=== PATIENT | female | born 1955 | race American Indian/Alaskan Native ===

== ENCOUNTER 2020-02-06 00:48 | Outpatient (CLI) | payer MEDICAID, SELFPAY ==
--- NOTE | 2020-02-06 | DI.MAMMO_ITS ---
EXAM: MAMMO SCREENING CLINICAL HISTORY: SCREENING,Z12.31 TECHNIQUE: Mammograms were interpreted according to the usual protocol including computer analysis w [employer] system, tomosynthesis and C-view imaging. FINDINGS: The breasts are of moderate density with fairly symmetrical distribution of fibroglandular tissue, fo piero asymmetric density is noted in upper outer quadrant of the right breast, unchanged in appearance in comparison with prior studies from [facility] including July 2018. No dominant mass or clumped microcalcification is identified in either breast. No other significant change seen. IMPRESSION: No specific evidence of malignancy at this time. Routine screening examinations are suggested at yea rly intervals in this age group according to the ACS/ACR guidelines. BI-RADS Category 1 - Negative Breast Density - Category B - Scattered areas of fibroglandular density
== END 2020-02-06 01:08 ==
PROVIDERS: PCP Family Medicine; Visit Provider Family Medicine
DX: Z12.31 Encounter for screening mammogram for malignant neoplasm of breast (principal)
CPT/HCPCS: 77063; 77067

== ENCOUNTER 2020-04-16 00:30 | Outpatient (CLI) | payer MEDICAID, SELFPAY ==
[2020-04-16 07:52] LABS: Abs Immature Grans 0.01 10^3/uL (0.0-0.06); Absolute Basophil Count 0.03 10^3/uL (0.0-0.2); Absolute Lymphocyte Count 1.59 10^3/uL (1.2-3.4); Absolute Monocyte Count 0.41 10^3/uL (0.1-0.8); Absolute Neutrophil Count 2.98 10^3/uL (1.2-6.7); Basophils % 0.6; Eosinophils % 3.8; HCT 42.7 % (36.0-46.0); HGB 13.8 g/dL (11.2-15.7); Immature Grans % 0.2; Lymphocytes % 30.5; MCH 29.3 pg (27.0-33.0); MCHC 32.3 % (32.0-36.0); MCV 90.7 fL (80-95); MPV 10.2 fL (8.0-11.0); Monocytes % 7.9; Nucleated RBC 0 %; Platelet Count 236 10^3/uL (130-400); RBC 4.71 10^6/uL (3.93-5.22); RDW 12.3 % (11.7-14.6); RDW-SD 40.6 fL; WBC 5.22 10^3/uL (4.4-10.8)
--- NOTE | 2020-04-16 08:08 | DI.RAD_ITS ---
EXAM: XR CHEST 2V PA LATERAL CLINICAL HISTORY: DRY COUGH,R05 TECHNIQUE: 2D digital imaging was performed. COMPARISON: No exams were available for comparison FINDINGS: MEDIASTINUM: Normal. HEART: Normal. PULMONARY VASCULATURE: Normal. LUNGS: Clear. PLEURAL SPACE: No pleural effusion or pneumothorax. BONE:Within normal limits for the patient's age. OTHER FINDINGS:Normal. IMPRESSION: No acute pulmonary findings. DATA REPOSITORY: RADIATION DOSE DELIVERED:
[2020-04-16 08:09] LABS: ALT 23 U/L (14-59); AST 17 U/L (15-37); Albumin 3.5 g/dL (3.4-5.0); Alkaline Phosphatase 85 U/L (46-116); Anion Gap 1.9 mmol/L (3-11); BUN 15 mg/dL (7-18); Bilirubin, Total 0.7 mg/dL (0.2-1.0); CO2 33.1 mmol/L (21.0-32.0); CREATININE 0.92 mg/dL (0.55-1.02); Calcium 8.8 mg/dL (8.5-10.1); Chloride 105 mmol/L (98-107); Glucose 122 mg/dL (74-106); Potassium 4.4 mmol/L (3.5-5.1); Sodium 140 mmol/L (136-145); TSH 5.48 uIU/mL (0.36-3.74); Total Protein 6.8 g/dL (6.4-8.2)
== END 2020-04-16 00:50 ==
PROVIDERS: PCP Family Medicine; Visit Provider Family Medicine
DX: R05 Cough (principal)
CPT/HCPCS: 36415; 80053; 71046; 84443; 85025

== ENCOUNTER 2021-01-06 10:44 | Outpatient (REF) | payer SELFPAY ==
[2021-01-07 19:43] LABS: COVID-19 RT-PCR UVMMC Result Negative (Negative)
== END 2021-01-06 10:56 ==
LOC: ER 10:44
PROVIDERS: Nurse Practitioner Family; PCP Family Medicine
DX: Z20.822 Contact with and (suspected) exposure to COVID-19 (principal); Z03.818 Encounter for observation for suspected exposure to other biological agents ruled out
CPT/HCPCS: 99281; U0003

== ENCOUNTER 2021-01-10 13:28 | Outpatient (CLI) | payer MEDICAID, SELFPAY ==
--- NOTE | 2021-01-10 | DI.RAD_ITS ---
Exam(s) XR CHEST 2V PA LATERAL EXAM: XR CHEST 2V PA LATERAL CLINICAL HISTORY: SOB, R06.02 TECHNIQUE: 2D digital imaging was performed. COMPARISON: CR XR CHEST 2V PA LATERAL from 04/16/2020 FINDINGS: MEDIASTINUM: Normal. HEART: Normal. PULMONARY VASCULATURE: Normal. LUNGS: Clear. PLEURAL SPACE: No pleural effusion or pneumothorax. BONE:Unremarkable for age. IMPRESSION: No acute abnormality. DATA REPOSITORY: RADIATION DOSE DELIVERED:
== END 2021-01-10 13:48 ==
PROVIDERS: PCP Family Medicine; Visit Provider Family Medicine
DX: R06.02 Shortness of breath (principal)
CPT/HCPCS: 71046

== ENCOUNTER 2021-01-27 01:49 | Outpatient (CLI) | payer MEDICAID, SELFPAY ==
--- NOTE | 2021-01-27 14:30 | DI.CT_ITS ---
Exam(s) CT CHEST WO EXAM: CT CHEST WO CLINICAL HISTORY: SOB,R06.02,R09.89,ABNL LOW EXP FLOW RATE. TECHNIQUE: Multi planar reconstructions were performed. CONTRAST MATERIAL: None COMPARISON: CR XR CHEST 2V PA LATERAL from 01/10/2021 CR XR CHEST 2V PA LATERAL from 01/10/2021 FINDINGS: CHEST: LUNGS: There are no confluent pulmonary infiltrates nor pleural effusions. No bullae. There is a be nign-appearing area of focal pleural thickening in the posterior basal segment of the left lower lobe . There is a small focus of pleural thickening-pleural base nodule measuring 2 millimeters in the po sterior aspect of the right upper lobe. No infiltrates. No abnormal interstitial lung pattern. The re are no significant focal findings in the trachea and mainstem bronchi. There is no bronchiectasis . MEDIASTINUM: There is no obvious hilar nor mediastinal adenopathy. Visualized thyroid unremarkable.No obvious axillary adenopathy CARDIAC: Heart size is normal. There very mild thickening of the anterior pericardium, maximum 3-4 m illimeters.Caliber of the thoracic aorta is within normal limits. VISUALIZED UPPER ABDOMEN:No adrenal masses. Gallbladder surgically absent. Parapelvic cysts versus hydronephrosis of the left kidney. Similar findings are not seen on the left side. Please note that the kidneys are only partially included in the field of view of this chest study. OSSEOUS: No significant osseous lesions.. IMPRESSION: 1. Mild benign-appearing pleural based findings as described above. No infiltrates nor pleural effus ions. No pneumothorax. No bullae. No bronchiectasis 2. Mild thickening of the anterior pericardium with maximum thickness 4 millimeters. This may indica te a small pericardial effusion. Heart size is normal. 3. Left kidney findings as above. However, only small part of the left kidney is included in the fie ld of view. RADIATION DOSE DELIVERED: 469.88mGy.cm Total DLP DATA REPOSITORY: All CT scans at this facility are submitted to the National Radiology Data Registry (NRDR) Dose Index Registry (DIR) with the [employer] (ACR). RADIATION OPTIMIZATION: All CT scans at this facility use at least one of these dose optimization te chniques: automated exposure control; mA and/or kV adjustment per patient size (includes targeted exa ms where dose is matched to clinical indication); or iterative reconstruction.
== END 2021-01-27 02:09 ==
PROVIDERS: PCP Family Medicine; Visit Provider Family Medicine
DX: R06.02 Shortness of breath (principal); R09.89 Other specified symptoms and signs involving the circulatory and respiratory systems
CPT/HCPCS: 71250

== ENCOUNTER 2021-02-17 01:39 | Outpatient (CLI) | payer MEDICAID, SELFPAY ==
--- NOTE | 2021-02-17 | DI.US_ITS ---
Exam(s) US ABDOMEN EXAM: US ABDOMEN CLINICAL HISTORY: RUQ PAIN, R10.11 TECHNIQUE: Ultrasound of complete upper abdomen performed using standard protocol. COMPARISON: US BREAST from 09/01/[address] CHEST WO from 01/27/[address] CHEST WO from 01/27/2021 FINDINGS: There is no ascites evident. LIVER: There are no hepatic lesions evident nor obvious dilatation of intrahepatic ducts. GALLBLADDER/BILIARY: Gallbladder surgically absent The common hepatic duct isnot dilated, measuring 5-6mm at the level of dayan hepatis. PANCREAS: There is no evidence of pancreatic mass nor dilatation of the pancreatic duct. SPLEEN: The spleen is not enlarged and there are no intrasplenic lesions evident. KIDNEYS:Both kidneys exhibit normal size normal cortical thickness and corticomedullary differentiati on. However, there are multiple small parapelvic cysts in the right kidney and parapelvic cysts vers us hydronephrosis of the left kidney. No cortical cysts evident. ABDOMINAL AORTA: There is no evidence of abdominal aortic aneurysm. IVC: Normal diameter where visualized. IMPRESSION: 1. Gallbladder surgically absent. No significant dilatation of the biliary tree. 2. Both kidneys exhibit findings which are either parapelvic cysts or mild bilateral hydronephrosis. Difficult to differentiate between these so ultrasound examination. Recommend follow-up contrast i nfused CT scan which should be ordered as CT urogram. 3. There is no ascites. DATA REPOSITORY:
--- NOTE | 2021-02-17 07:45 | DI.US_ITS ---
APPROVED REPORT EXAM: Comprehensive 2D, Doppler, and color-flow Echocardiogram Patient Location: Out-Patient [employer] Software Engineer: Shani Roman RDCS (AE) Indications: SOB Other Information Study Quality: Good Conclusion Normal left ventricular wall thickness and chamber size. Estimated ejection fraction is 60 to 65%. There are no segmental wall motion abnormalities Normal right ventricular size and systolic function Both atria are normal in size There are no structural or hemodynamically significant valvular abnormalities Normal estimated right ventricular systolic pressure 26 mmHg Wall motion Left Ventricle The left ventricle is normal size. The left ventricular systolic function is normal. The left ventric ular ejection fraction is within the normal range. There is normal left ventricular wall thickness. T here is normal LV segmental wall motion. There is no ventricular septal defect visualized. LVEF is 60 -65%. Right Ventricle The right ventricle is normal size. The right ventricular systolic function is normal. The RVSP is 26 .3 mmHg. Atria The left atrium size is normal. The right atrium size is normal. The interatrial septum is intact wit h no evidence for an atrial septal defect. Aortic Valve The aortic valve is normal in structure. There is no aortic valvular stenosis. No aortic regurgitatio n is present. Mitral Valve The mitral valve is normal in structure. No evidence of mitral valve stenosis. Trace to mild mitral r egurgitation. Tricuspid Valve The tricuspid valve is normal in structure. There is no tricuspid valve stenosis. Trace to mild tricu spid regurgitation. Pulmonic Valve The pulmonary valve is normal in structure. There is no pulmonic valvular stenosis. There is no pulmo marita valvular regurgitation. Great Vessels The aortic root is normal in size. The ascending aorta is normal in size. Aortic arch is normal in ca liber. IVC is normal in size and collapses >50% with inspiration. Pericardium There is no pericardial effusion. 2D Dimensions IVSD d PLAX 0.86 cm F: 0.6-1.0 LV Vol A2C d MOD 100.0 mL LVPW d PLAX 0.87 cm F: 0.6 - 1.0 LV Vol A4C d MOD 74.4 mL LVID d PLAX 4.68 cm F: 3.8 - 5.2 LA vol/ BSA A2C s A-L 30.1 mL/m2 LVDs 3.05 cm F: 2.2 - 3.5 LA vol/ BSA A4C s A-L 23.9 mL/m2 Ao Root d 2.68 cm F: 2.7 - 3.3 LA Vol/ BSA Biplane s A-L 27.3 mL/m2 RA Area A4C 11.80 cm2 LA Area A4C s MOD 17.34 cm2 RA Vol/ BSA A4C s A-L 15.4 mL/m2 LA Area A2C s MOD 19.13 cm2 Ao Asc Diam d 2.83 cm F: 2.3 - 3.1 LV EF A4C MOD 66.0 % LV EF Teichholz 63.8 % LV EF A2C MOD 59.5 % LVEF (Renteria's) 61.20 % F: 54 - 74 LV EF Biplane MOD 61.2 % LV Volume 69.10 mL F: 46 - 106 SV 54.14 mL LV Volume Index 38.82 mL/m2 F: 29 - 61 SV Index 30.43 mL/m2 LV Vol Biplane MOD 88.5 mL FS 34.65 % LV Diastology MV E' medial 0.151 (>0.07 m/s) E/A Ratio 1.4 LV E/e MED 5.40 (<14) MV E Vmax 0.81 (0.4-1.3 m/s) MV E' lateral 0.143 (>0.1 m/s) MV A Vmax 0.60 (0.4-1.3 m/s) LV E/e LAT 5.70 (<14) MV E/A Ratio 1.28 MV E/E' medial 5.41 MV E/E' lateral 5.71 Aortic Valve LVOT Area 2.77 cm2 AoV Area Vmax 1.81 cm2 LVOT Vmax 1.05 m/s AoV Area/ BSA (Vmax) 1.02 cm2/m2 LVOT Mean Stew. 0.66 m/s LALO Mean Stew. 1.62 cm2 LVOT Peak Grad 4.4 mmHg LALO Mean Stew. Index 0.91 cm2/m2 LVOT Mean Grad 2.1 mmHg LVOT VTI 0.267 m LVOT Diam s 1.85 cm AoV Vmax 1.61 m/s Velocity Ratio 0.65 AoV Mean Stew. 1.13 m/s AoV Peak Grad 10.3 mmHg LVOT SV 73.82 mL AoV Mean Grad 5.6 mmHg AoV VTI 0.382 m AoV Area VTI 1.93 cm2 AoV Area/ BSA (VTI) 1.09 cm/m2 Mitral Valve MV DT 211 (160-240 msec) MR Vmax 4.96 m/s MV PHT 61 msec MR VTI 2.001 m MV Area PHT 3.59 cm2 MR Peak Grad 98.5 mmHg MV VTI 0.370 m MR Mean Grad 67.2 mmHg MV VTI Annulus 0.391 m MR PISA Radius 0.50 cm MV Area VTI 2.12 (4.0-6.0 cm2) MR EROA 0.11 cm2 MR Aliasing Velocity 0.35 m/s MR PISA 1.60 cm2 Pulmonary Valve PV Vmax 0.94 (0.5-1.5 m/s) RVOT Peak Gr. 3.31 mmHg PV Peak Grad 3.5 mmHg RVOT Mean Gr. 1.60 mmHg PV Mean Grad 2.1 mmHg RVOT VTI 0.226 m PV VTI 0.225 m RVOT Vmax 0.91 m/s Tricuspid Valve TR Peak Grad 23.3 mmHg TR Vmax 2.42 m/s RA Pressure 3.00 mmHg RVSP (TR) 26.3 mmHg
== END 2021-02-17 01:59 ==
PROVIDERS: PCP Family Medicine; Visit Provider Family Medicine
DX: R06.02 Shortness of breath (principal)
CPT/HCPCS: 76700; 93306

== ENCOUNTER 2021-02-17 03:14 | Outpatient (CLI) | payer MEDICAID, SELFPAY ==
--- NOTE | 2021-03-13 09:11 | W.ZIOMONITOR ---
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 Minimum was 41, maximum 131 There were rare atrial and ventricular ectopic beats There was one 6 beat run of nonsustained ventricular tachycardia. There were multiple self-limited atrial runs, the longest of which was 24 beats in length There was no atrial fibrillation, no high-grade AV block, no pauses greater than 3 seconds Patient symptoms corresponded to atrial and ventricular ectopic beats, as well as to sinus rhythm
== END 2021-02-17 03:15 | disposition home or self-care (01) ==
LOC: RT 03:14
PROVIDERS: PCP Family Medicine; Visit Provider Family Medicine
DX: I49.9 Cardiac arrhythmia, unspecified (principal)
CPT/HCPCS: 93246

== ENCOUNTER 2021-08-01 01:28 | Outpatient (CLI) | payer MEDICAID, SELFPAY ==
[2021-08-01] MEDS: Albuterol HFA 18 GM 200 PUFF INH IH (12:17)
[2021-08-01] MEDS: Methacholine 100 MG VIAL IH (12:17)
[2021-08-01] MEDS: Inhaler, Assist Device 1 EACH MC (12:17)
== END 2021-08-01 01:29 | disposition home or self-care (01) ==
LOC: RT 01:28
PROVIDERS: PCP Family Medicine; Visit Provider Student in an Organized Health Care Education/Training Program
DX: R06.09 Other forms of dyspnea (principal); R94.2 Abnormal results of pulmonary function studies; F40.240 Claustrophobia
CPT/HCPCS: 94060; 94070; 94729; 94010; J7674

== ENCOUNTER → 2022-03-19 02:04 | Outpatient (CLI) | payer MEDICARE, MEDICAID, SELFPAY ==
--- NOTE | 2022-03-19 | DI.MAMMO_ITS ---
Exam(s) MAMMO SCREENING EXAM: MAMMO SCREENING CLINICAL HISTORY: SCREENING, Z12.31 TECHNIQUE: Mammograms were interpreted according to the usual protocol including computer analysis w [employer] CAD system, tomosynthesis and C-view imaging. COMPARISON: FINDINGS: The breasts are of moderate density with fairly symmetrical distribution of fibroglandular tissue. N o dominant mass or clumped microcalcification is identified in either breast. The current examinatio n is compared with previous examinations including February 2020 and there has been no gross interval change in appearance in comparison with the prior studies. IMPRESSION: No specific evidence of malignancy at this time. Routine screening examinations are suggested at yea rly intervals in this age group according to the ACS ACR guidelines. BI-RADS Category 1 - Negative Breast Density - Category B - Scattered areas of fibroglandular density
== END ==
PROVIDERS: PCP Family Medicine; Visit Provider Family Medicine
DX: Z12.31 Encounter for screening mammogram for malignant neoplasm of breast (principal)
CPT/HCPCS: 77063; 77067

== ENCOUNTER 2022-09-24 01:48 | Outpatient (CLI) | payer MEDICARE, MEDICAID, SELFPAY ==
[2022-09-24] MEDS: Barium Sulfate 2% W/V-Berry Smoothie 450 ML BTL 900 ML PO (08:22)
[2022-09-24 08:26] LABS: Estimated GFR 62.52 (mL/min/1.73m2)
--- NOTE | 2022-09-24 10:00 | DI.CT_ITS ---
Exam(s) CT CHEST/ABD/PEL W EXAM: CT CHEST/ABD/PEL W CLINICAL HISTORY: RUQ PAIN, R10.11; CHEST PAIN, R07.89 TECHNIQUE: Imaging Protocol: Axial computed tomography images with coronal and sagittal reformatted images were created and reviewed CONTRAST MATERIAL: Intravenous: Omnipaque 350 contrast volume:100 mL Oral: Yes COMPARISON: CT CT CHEST WO from 01/27/2021 FINDINGS: CHEST: Tracheobronchial tree: Patent where visualized. Pulmonary parenchyma: No consolidation or dominant measurable mass. No architectural distortion. Ther e is mild scarring seen in the left lingula. Visualized thyroid gland: Unremarkable. Mediastinum and Ella: No dominant adenopathy or fluid collection. The esophagus is unremarkable. Pleura: No effusion or pneumothorax. Heart: The heart is not dilated. No coronary artery calcifications are seen. No pericardial effusion. Pulmonary arteries: No pulmonary emboli are identified. Aorta: Thoracic aorta non-dilated. Atherosclerosis is present. Lymph nodes: Within normal limits. Soft tissues: Unremarkable. Bones:Within normal limits for the patient's age. No aggressive osseous lesions are seen. ABDOMEN: Liver: Normal density. No measurable mass. Portal, Superior Mesenteric, and Splenic Veins: Unremarkable. Gallbladder and Biliary Tract: Status post cholecystectomy. No biliary ductal dilatation. Pancreas: Normal density, no abnormal calcifications or inflammatory process. Spleen: Normal. Adrenals: No masses seen. Kidneys: Normal size, contour and axis. No radiodense stones or obstructive uropathy. There are bilat eral parapelvic cysts. No follow-up is recommended. Abdominal Aorta: Abdominal portion non-dilated. Mild atherosclerosis. Bowel: There is diverticulosis seen in the sigmoid colon, but no evidence of acute diverticulitis. T here is a moderate amount of stool in the colon suggesting constipation. No evidence of bowel obstru ction is present. There is thickening of the wall of loops of proximal small bowel in the left upper quadrant. Appendix is unremarkable. Peritoneal Cavity: No ascites, collection or mesenteric inflammatory response. No free air. Lymph Nodes: Within normal limits. Bones: Within normal limits for the patient's age. Soft Tissues: Unremarkable. PELVIS: Bladder: Symmetric distention, no gross wall thickening. Reproductive Organs: Status post hysterectomy. Lymph Nodes: Within normal limits. Bones: Within normal limits. IMPRESSION: 1. No findings to suggest metastatic disease in the chest, abdomen or pelvis. 2. Thickening of the wall of proximal jejunum. This is nonspecific. An infectious or inflammatory p rocess should be considered. Please correlate clinically. 3. Colonic diverticulosis, but no evidence of acute diverticulitis. RADIATION DOSE DELIVERED: 1,458.88mGy.cm Total DLP DATA REPOSITORY: All CT scans at this facility are submitted to the National Radiology Data Registry (NRDR) Dose Index Registry (DIR) with the [employer] (ACR). RADIATION OPTIMIZATION: All CT scans at this facility use at least one of these dose optimization te chniques: automated exposure control; mA and/or kV adjustment per patient size (includes targeted exa ms where dose is matched to clinical indication); or iterative reconstruction.
[2022-09-24] MEDS: Normal Saline Flush 10 ML SYR IJ (10:52)
[2022-09-24] MEDS: Omnipaque 350 MG/ML 100 ML BTL IJ (10:53)
== END 2022-09-24 02:08 ==
PROVIDERS: PCP Family Medicine; Visit Provider Family Medicine
DX: K57.30 Diverticulosis of large intestine without perforation or abscess without bleeding (principal); R93.5 Abnormal findings on diagnostic imaging of other abdominal regions, including retroperitoneum; R10.11 Right upper quadrant pain; R07.89 Other chest pain
CPT/HCPCS: 74177; 71260; 82565; J3490

== ENCOUNTER → 2023-05-05 09:50 | Outpatient (BNVA) | payer MEDICARE, SELFPAY | PROVIDERS: PCP Family Medicine; Referring Provider Family Medicine; Visit Provider Student in an Organized Health Care Education/Training Program | DX: J06.9 Acute upper respiratory infection, unspecified (principal); J45.909 Unspecified asthma, uncomplicated | CPT/HCPCS: 99214 ==

== ENCOUNTER 2023-05-05 11:32 | Outpatient (REF) | payer MEDICARE, SELFPAY ==
[2023-05-05 12:21] LABS: COVID-19 PCR Negative (Negative); Influenza A PCR Negative (Negative); Influenza B PCR Negative (Negative); RSV PCR Negative (Negative)
[2023-05-05 12:23] LABS: Source Nasopharynx
== END 2023-05-05 11:33 | disposition home or self-care (01) ==
LOC: LBN 11:32
PROVIDERS: PCP Family Medicine; Visit Provider Student in an Organized Health Care Education/Training Program
DX: J06.9 Acute upper respiratory infection, unspecified (principal); Z20.822 Contact with and (suspected) exposure to COVID-19
CPT/HCPCS: 87637

== ENCOUNTER → 2023-05-25 09:34 | Outpatient (BNVA) | payer MEDICARE, SELFPAY | PROVIDERS: PCP Family Medicine; Referring Provider Family Medicine; Visit Provider Physician Assistant Surgical | DX: J45.909 Unspecified asthma, uncomplicated (principal) | CPT/HCPCS: 99214 ==

== ENCOUNTER → 2023-11-23 08:56 | Outpatient (BNVA) | payer MEDICARE, SELFPAY | PROVIDERS: PCP Family Medicine; Referring Provider Family Medicine; Visit Provider Physician Assistant Surgical ==

== ENCOUNTER 2023-11-23 11:56 | Outpatient (CLI) | payer MEDICARE, SELFPAY ==
[2023-11-23 11:34] LABS: Abs Immature Grans 0.02 10^3/uL (0.0-0.06); Absolute Basophil Count 0.03 10^3/uL (0.0-0.2); Absolute Eosinophil Count 0.22 10^3/uL (0.0-0.7); Absolute Lymphocyte Count 0.94 10^3/uL (1.2-3.4); Absolute Monocyte Count 0.39 10^3/uL (0.1-0.8); Absolute Neutrophil Count 3.03 10^3/uL (1.2-6.7); Basophils % 0.6 %; Eosinophils % 4.8 %; HCT 46.2 % (36.0-46.0); HGB 14.7 g/dL (11.2-15.7); Immature Grans % 0.4 %; Lymphocytes % 20.3 %; MCH 29.7 pg (27.0-33.0); MCHC 31.8 % (32.0-36.0); MCV 93 fL (80-95); MPV 10.6 fL (8.0-11.0); Monocytes % 8.4 %; Neutrophils % 65.5 %; Platelet Count 209 10^3/uL (130-400); RBC 4.95 10^6/uL (3.93-5.22); RDW 12.6 % (11.7-14.6); RDW-SD 43.3 fL; WBC 4.63 10^3/uL (4.4-10.8)
[2023-11-23 12:16] LABS: Vitamin B12 643 pg/mL (193-986)
[2023-11-24 07:51] LABS: IgE 55 IU/mL (<158)
== END 2023-11-23 11:57 | disposition home or self-care (01) ==
LOC: LBO 11:57
PROVIDERS: PCP Family Medicine; Visit Provider Physician Assistant Surgical
DX: J45.909 Unspecified asthma, uncomplicated (principal)
CPT/HCPCS: 36415; 99214; 82607; 82785; 85025

== ENCOUNTER 2024-03-09 02:14 | Outpatient (CLI) | payer MEDICARE, SELFPAY ==
--- NOTE | 2024-03-09 08:00 | DI.CT_ITS ---
Exam(s) CT SINUS WO EXAM: CT SINUS WO CLINICAL HISTORY: Chronic sinusitis, headache,environmental allergies,Z91.09,j32.9,r51.9. Evaluate for sinusitis. TECHNIQUE: Imaging Protocol: Axial computed tomography images with coronal and sagittal reformatted images were created and reviewed. COMPARISON: No exams were available for comparison FINDINGS: Frontal sinuses: Normally aerated. Ethmoid air cells: Normally aerated. Maxillary sinuses: Small mucous retention cyst medial wall left maxillary sinus. Sphenoid sinuses: Normally aerated. Ostiomeatal complexes: Patent. Nasal cavity: Septum is midline. Visualized regional soft tissues: No acute findings. Orbits: Unremarkable. Bones: Unremarkable. Mastoid Air Cells: Normally aerated. Visualized portions of the brain: Unremarkable as visualized. IMPRESSION: Small mucous retention cyst left maxillary sinus. The sinuses are otherwise clear. RADIATION DOSE DELIVERED: Total DLP DATA REPOSITORY: All CT scans at this facility are submitted to the National Radiology Data Registry (NRDR) Dose Index Registry (DIR) with the [employer] (ACR). RADIATION OPTIMIZATION: All CT scans at this facility use at least one of these dose optimization te chniques: automated exposure control; mA and/or kV adjustment per patient size (includes targeted exa ms where dose is matched to clinical indication); or iterative reconstruction.
== END 2024-03-09 02:34 ==
LOC: DI 02:14
PROVIDERS: PCP Family Medicine; Visit Provider Physician Assistant
DX: J32.0 Chronic maxillary sinusitis (principal); Z91.09 Other allergy status, other than to drugs and biological substances
CPT/HCPCS: 70486

== ENCOUNTER 2024-09-08 10:53 | Outpatient (CLI) | payer MEDICARE, SELFPAY ==
[2024-09-11 14:11] LABS: Alternaria Tenuis IgE <0.10 kU/L (<0.70); Amoxicillin, IgE <0.10 kU/L (<0.70); Aspergillus Fumigatus IgE <0.10 kU/L (<0.70); Bermuda Grass IgE <0.10 kU/L (<0.70); Cocklebur IgE <0.10 kU/L (<0.70); Cockroach IgE <0.10 kU/L (<0.70); Cottonwood IgE <0.10 kU/L (<0.70); D Farinae IgE <0.10 kU/L (<0.70); D Pteronyssinus IgE <0.10 kU/L (<0.70); Eastern Sycamore IgE <0.10 kU/L (<0.70); Elm IgE <0.10 kU/L (<0.70); Epicoccum purpurascens IgE <0.10 kU/L (<0.70); Fusarium moniliforme, IgE <0.10 kU/L (<0.70); Giant Ragweed IgE <0.10 kU/L (<0.70); Oak IgE 0.17 kU/L (<0.70); Penicillin G IgE <0.10 kU/L (<0.70); Penicillin V IgE <0.10 kU/L (<0.70); Penicillium chrysogenum IgE <0.10 kU/L (<0.70); Red Sorrel IgE <0.10 kU/L (<0.70); Rough Pigweed IgE <0.10 kU/L (<0.70); Silver Birch IgE 0.51 kU/L (<0.70); Stemphyllium IgE <0.10 kU/L (<0.70); Timothy Grass IgE <0.10 kU/L (<0.70); Walnut Tree IgE <0.10 kU/L (<0.70)
[2024-09-13 17:32] LABS: Cat Epithelium IgE <0.10 kU/L (<0.70); Cladosporium IgE <0.10 kU/L (<0.70); Dog Dander IgE <0.10 kU/L (<0.70); Lamb's Quarter IgE <0.10 kU/L (<0.70); Short Ragweed IgE <0.10 kU/L (<0.70); Wormwood IgE <0.10 kU/L (<0.70)
[2024-09-14 17:46] LABS: CLASS 0; CLASS 0/1; Cedar Red IgE 0.18 kU/L (<0.35); Rhodotorula IgE <0.35 kU/L (<0.35)
== END 2024-09-08 10:54 | disposition home or self-care (01) ==
LOC: LBO 10:53
PROVIDERS: PCP Family Medicine; Visit Provider Physician Assistant
DX: Z88.9 Allergy status to unspecified drugs, medicaments and biological substances (principal); J32.9 Chronic sinusitis, unspecified; Z91.09 Other allergy status, other than to drugs and biological substances; J45.909 Unspecified asthma, uncomplicated; Z87.892 Personal history of anaphylaxis
CPT/HCPCS: 36415; 86003

== ENCOUNTER 2025-02-03 13:30 | Outpatient (REF) | payer MEDICARE, SELFPAY ==
[2025-02-07 09:59] LABS: Cholesterol 247 mg/dL (<200); Triglyceride 251 mg/dL (<150)
[2025-02-07 10:00] LABS: Calculated LDL 146 mg/dL (<100); HDL Cholesterol 51 mg/dL (>or=50)
== END 2025-02-03 13:31 | disposition home or self-care (01) ==
LOC: LBN 13:30
PROVIDERS: PCP Family Medicine; Visit Provider Internal Medicine Cardiovascular Disease
DX: E78.5 Hyperlipidemia, unspecified (principal)
CPT/HCPCS: 80061